=== PATIENT | female | born 1970 | race Caucasian/White ===

== ENCOUNTER 2023-04-22 17:48 | Emergency (ER) | payer OTHER ==
[~2023-04-22] VITALS: Ht 152.4 cm; Wt 55.3 kg
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
[2023-04-22] MEDS ORDERED: KETOROLAC TROMETHAMINE INJ 30 MG/ML VIAL ONE (18:05)
[2023-04-22] MEDS ORDERED: CYCLOBENZAPRINE 10 MG TABLET ONE (18:05)
[2023-04-22] MEDS ORDERED: KETOROLAC TROMETHAMINE INJ 60 MG/2 ML VIAL IM ONE (18:30)
[2023-04-22] MEDS ORDERED: CYCLOBENZAPRINE 10 MG TABLET PO ONE (18:30)
[2023-04-22] MEDS ORDERED: IBUP-1955 PO (20:08)
[2023-04-22] MEDS ORDERED: CYCL10TA9 PO (20:08)
--- NOTE | 2023-04-22 20:20 | NUR ---
Patient discharged to home in stable condition. Written and verbal after care instructions given. Patient verbalizes understanding of instruction.
[2023-04-22 20:23] VITALS: BP 129/74
== END 2023-04-22 20:20 | disposition home or self-care (01) ==
LOC: ER 17:52
DX: S29.012A Strain of muscle and tendon of back wall of thorax, initial encounter (principal); S16.1XXA Strain of muscle, fascia and tendon at neck level, initial encounter; Z79.899 Other long term (current) drug therapy; V43.62XA Car passenger injured in collision with other type car in traffic accident, initial encounter; Y93.89 Activity, other specified; Y92.89 Other specified places as the place of occurrence of the external cause; Y99.8 Other external cause status
CPT/HCPCS: 99284; 71045; 96372; 72050; 72070; 73030; J1885